=== PATIENT | female | born 2000 | race Caucasian/White ===

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

== ENCOUNTER 2019-11-09 09:08 | Emergency (ER) | payer OTHER, SELFPAY ==
[2019-11-09 09:17] VITALS: BP 153/90; PULSE 110; RESP 22; TEMP 38.2; O2SAT 96; BMI 41.3
--- NOTE | 2019-11-09 09:46 | HMH.EDUTC ---
[facility] [place] Impression: Bronchitis Sinusitis Qualifiers: Sinusitis location: unspecified location Chronicity: unspecified Qualified Code(s): J32.9 - Chronic sinusitis, unspecified Disposition: Home, Self-Care Condition on Discharge: Good Instructions: Sinusitis, Sinus Headache, DI for Sinusitis Additional Instructions: ? Start antibiotic today. Be sure to complete entire prescription even if feeling better ? Monitor temp. Tylenol every 4 hours as needed and / or ibuprofen every 6 hours as needed ( As long as your primary care physician has told you that it ok to take both. For fever/aches/pains ER if no less than 101 despite Tylenol or Motrin ? Humidifier/vaporizer or hot steamy shower ? Inhaler every 4-6 hours as needed like we discussed. If unsure how to use it, ask pharmacist to demonstrate how. Should help open airways and improve cough, wheezing, and shortness of breath ? Mucinex during the day for your cough and cough suppressant only at night. Be sure to drink lots of water. Insurance may not cover a prescriptions for mucinex. Might be cheaper to get 400mg tablets and take 2 tablet in the morning, mid-day and evening with lots of water. *Tessalon Perles will not cause drowsiness but use at bedtime to help stop cough so that you may get some rest. *Continue steroid Helps with inflammation therefore, cough and wheezing. Follow directions on the package. Reviewed side effects. Patient reports taking them before. Follow up IMMEDIATELY for new or worsening of symptoms OR no noticeable improvement over the next 48-72 hours. 911 immediately for any life threatening symptoms such as chest pain or difficulty breathing Prescriptions: Albuterol Sulfate [Albuterol HFA Inhaler] 1 - 2 puffs IH Q4-6H PRN #1 inh PRN Reason: Shortness Of Breath Or Wheezing Transmission Status: Pending to [facility] Amoxicillin/Potassium Clav [Augmentin 875-125 Tablet] 1 tab PO Q12H 7 Days #14 tab Transmission Status: Pending to [facility] Fluticasone Propionate [Flonase 50mcg nasal spray 16gm] 2 spr NS DAILY #1 bottle Transmission Status: Pending to [facility] Benzonatate [Tessalon Perle 100mg Cap*] 100 mg PO BID PRN #10 cap PRN Reason: Cough Transmission Status: Pending to [facility] [address] Referrals: Blank Hoffman APRN [Primary Care Provider] - As needed Time of Disposition: 09:57 Medical Decision Making - Chris Inquiry Pt receiving controlled substance: No Chris was queried for this patient: No Vital Signs: 11/09/19 09:17 Temperature 100.8 F H Temperature Source Oral Pulse Rate [Radial] 110 H Respiratory Rate 22 Blood Pressure [Right Arm] 153/90 H Blood Pressure Mean [Right Arm] 111 Blood Pressure Source [Right Arm] Automatic Cuff Blood Pressure Position [Right Arm] Sitting 02 Sat by Pulse Oximetry 96 Oxygen Delivery Method Room Air - Lab Data Lab results reviewed: Yes: I reviewed the patient's lab results. Orders (Tests/Meds): ED MEDICATIONS Discontinued Medications Generic Name Dose Route Start Last Admin Trade Name Freq PRN Reason Stop Dose Admin Acetaminophen 650 mg 11/09/19 09:39 11/09/19 09:41 Acetaminophen 325mg Tab PO 11/09/19 09:40 650 mg ONCE ONE Administration Ibuprofen 800 mg 11/09/19 09:39 11/09/19 09:40 Motrin 400mg Tablet PO 11/09/19 09:40 800 mg ONCE ONE Administration [facility] [place] - General Stated complaint: SOA COUGH CAN'T SLEEP Time Seen by Provider: 11/09/19 09:46 Mode of Arrival: Ambulatory Source of Information: Patient Limitations: No Limitations Description of Symptoms (Recalled from Triage Doc. by RN): possible upper respiratory infection HEENT Symptoms (Recalled from RN notes): Yes Resp Symptoms (Recalled from RN notes): Yes Skin Symptoms (Recalled from RN notes): No MS Symptoms (Recalled from RN notes): No Functional Status (Recalled from RN notes): wnl - History of Present Il
[2019-11-09 09:54] LABS: UTC Influenza A Antigen Negative (Negative); UTC Influenza B Antigen Negative (Negative)
[2019-11-09 10:07] VITALS: BP 153/90; PULSE 110; RESP 22; TEMP 38.2; O2SAT 96
== END 2019-11-09 10:08 | disposition home or self-care (01) ==
PROVIDERS: Emergency Provider Nurse Practitioner; PCP Nurse Practitioner Family
DX: J20.9 Acute bronchitis, unspecified (principal); J32.9 Chronic sinusitis, unspecified; F41.8 Other specified anxiety disorders; F17.210 Nicotine dependence, cigarettes, uncomplicated; Z79.899 Other long term (current) drug therapy
CPT/HCPCS: 87804; 99201

== ENCOUNTER 2021-04-02 12:54 | Emergency (ER) | payer OTHER, SELFPAY ==
[2021-04-02] VITALS (9 sets, daily range): BP systolic 111–138; BP diastolic 50–71; PULSE 65–89; RESP 12–18; TEMP 36.7–36.8; O2SAT 96–100; BMI 50.4
--- NOTE | 2021-04-02 13:17 | XR_ITS ---
PROCEDURE: XR KNEE LT 3V CLINICAL INDICATION: hit on toilet and fell Pain COMPARISON: CR [id number] XR knee RT 3V from 12/02/2017 FINDINGS: There is lateral dislocation of the patella. Patella lies lateral to the lateral femoral condyle. No obvious fracture. The joint spaces are well-preserved. No significant degenerative/arthritic changes. No erosive changes evident. Other findings:None. IMPRESSION: Lateral patellar dislocation Dictated by: Darius Hayes MD 04/02/2021 13:41 Darius Hayes MD in [place] 04/02/2021 13:41
--- NOTE | 2021-04-02 13:18 | HMH.EDGENADL ---
ED Disposition Clinical Impression: Patellar dislocation Qualifiers: Encounter type: initial encounter Laterality: left Qualified Code(s): S83.005A - Unspecified dislocation of left patella, initial encounter Disposition: Home, Self-Care Condition on Discharge: Good Instructions: DI for Patellar Dislocation Additional Instructions: Remain nonweightbearing on the left lower extremity until follow-up with orthopedic surgery. Return to the emergency department for any acute new or worsening concerns. Prescriptions: Hydrocodone/Acetaminophen [Hydrocodone-Acetamin 5-325 mg] 1 each PO Q6 PRN #10 tab PRN Reason: pain Transmission Status: Received by [facility] #[id number] Referrals: Alanna Espinal MD [Physician] - 3 days - Critical Care Critical Care Time: No Attestation: On 04/02/21, the high probability of a clinically significant, sudden or life threatening deterioration of the following system(s) required my full and direct attention, intervention and personal management. The time I documented below is in addition to time spent performing reported procedures but includes the following listed in this critical care notation. Medical Decision Making - Medical Records Medical records reviewed: Yes: I reviewed the patient's medical records. - Chris Inquiry Pt receiving controlled substance: Yes Chris was queried for this patient: No Risks and benefits of using a controlled substance: were discussed with pt by me Vital Signs: 04/02/21 12:56 04/02/21 14:30 04/02/21 14:32 Temperature 98.2 F Temperature Source Oral Pulse Rate Pulse Rate [Left Radial] 89 Respiratory Rate 18 12 18 Blood Pressure 111/70 127/61 Blood Pressure [Right Arm] 115/50 L Blood Pressure Mean 83 83 Blood Pressure Mean [Right Arm] 71 Blood Pressure Source [Right Arm] Automatic Cuff Blood Pressure Position [Right Arm] Sitting 02 Sat by Pulse Oximetry 100 96 100 Oxygen Delivery Method Room Air Oxygen Flow Rate (LPM) 04/02/21 14:37 04/02/21 14:40 04/02/21 14:45 Temperature Temperature Source Pulse Rate Pulse Rate [Left Radial] 69 82 65 Respiratory Rate 16 15 17 Blood Pressure 138/64 125/68 Blood Pressure [Right Arm] 127/61 138/64 125/68 Blood Pressure Mean 90 81 Blood Pressure Mean [Right Arm] 83 88 87 Blood Pressure Source [Right Arm] Automatic Cuff Automatic Cuff Blood Pressure Position [Right Arm] Sitting Sitting 02 Sat by Pulse Oximetry 100 100 100 Oxygen Delivery Method Room Air Nasal Cannula Room Air Oxygen Flow Rate (LPM) 2 04/02/21 14:47 04/02/21 14:50 Temperature Temperature Source Pulse Rate 85 Pulse Rate [Left Radial] Respiratory Rate 16 18 Blood Pressure 117/58 L 119/62 Blood Pressure [Right Arm] Blood Pressure Mean 91 81 Blood Pressure Mean [Right Arm] Blood Pressure Source [Right Arm] Blood Pressure Position [Right Arm] 02 Sat by Pulse Oximetry 96 96 Oxygen Delivery Method Oxygen Flow Rate (LPM) Orders (Tests/Meds): ED MEDICATIONS Discontinued Medications Generic Name Dose Route Start Last Admin Trade Name Freq PRN Reason Stop Dose Admin Hydrocodone Bitart/Acetaminophen 1 tab 04/02/21 13:17 04/02/21 13:37 Hydrocodone/Apap 5/325 Mg Tablet PO 04/02/21 13:18 1 tab ONCE ONE Administration Etomidate 10 mg 04/02/21 14:24 04/02/21 14:57 Etomidate 40mg/20ml Vial IV 04/02/21 14:25 10 mg ONCE STA Administration ORDERS Category Date Time Status Knee XR left 2 views [XR knee LT 2V] Stat Exams 04/02/21 14:39 Taken - Radiology Data #1 Image(s): Knee Lateral patella dislocation left knee #2 Image(s): Knee Image Reviewed: Yes I reviewed the patient's radiology image Left patella reduction Medical Decision Narrative: Patient with left patella dislocation, easily reduced under procedural sedation. Patient tolerated the procedure well. Knee immobilizer placed and patient was advised to be nonweig
--- NOTE | 2021-04-02 14:39 | XR_ITS ---
PROCEDURE: XR KNEE LT 2V CLINICAL INDICATION: post reduction Follow-up patellar dislocation COMPARISON: CR [id number] XR knee RT 3V from 12/02/2017 CR XR KNEE LT 3V from 04/02/2021 FINDINGS: There has been interval reduction the patellar dislocation which is now in good position. There is a faint density along the lower pole of the patella which could represent an avulsion fracture not readily apparent on the previous exam. The joint spaces are well-preserved. No significant degenerative/arthritic changes. No erosive changes evident. Other findings:None. IMPRESSION: Interval reduction of patellar dislocation with possible avulsion fracture along the lower pole of the Dictated by: Darius Hayes MD 04/02/2021 15:18 Darius Hayes MD in [place] 04/02/2021 15:18
== END 2021-04-02 15:30 | disposition home or self-care (01) ==
PROVIDERS: Emergency Provider Emergency Medicine
DX: S83.005A Unspecified dislocation of left patella, initial encounter (principal); W18.00XA Striking against unspecified object with subsequent fall, initial encounter; Y92.012 Bathroom of single-family (private) house as the place of occurrence of the external cause; E66.01 Morbid (severe) obesity due to excess calories; Z68.43 Body mass index [BMI] 50.0-59.9, adult; I10 Essential (primary) hypertension; E78.5 Hyperlipidemia, unspecified; F41.8 Other specified anxiety disorders; F17.210 Nicotine dependence, cigarettes, uncomplicated
CPT/HCPCS: 23650; 73560; 73562; 96374; 99284

== ENCOUNTER 2021-04-06 09:20 | Outpatient (RCR) | payer OTHER, SELFPAY | END 2021-04-06 10:54 | disposition home or self-care (01) | LOC: PT 09:20 | PROVIDERS: Visit Provider Orthopaedic Surgery | DX: S83.005A Unspecified dislocation of left patella, initial encounter (principal) | CPT/HCPCS: 97760 ==

== ENCOUNTER 2021-04-24 08:58 | Outpatient (RCR) | payer OTHER, SELFPAY ==
--- NOTE | 2021-04-24 09:38 | HMH.PTOPEV ---
PT Outpatient Evaluation Rehab PT Outpatient Evaluation Start: 04/24/21 09:27 Freq: Status: Active Protocol: Document 04/24/21 09:27 DAPHNEY (Rec: 04/24/21 09:38 DAPHNEY [id number]) Electronically Signed By Filemon Alvares, PT 04/24/21 09:27 Outpatient Therapy Subjective History Subjective History Pt reports injury to L knee on 04/02/21 d/t slip and fall at home. Pt sustained L patellar dislocation, and has lingerinn L knee pain, stiffness, swelling, and episodes of ' catching and clicking'. Pt reports knee cap area continues to improve, but still possesses significant stiffness and pain, davie. w/ stairs. Chief Complaint Pain,Stiff,Clicks,Swelling, Catches/Locks,Gives out/ Unstable,Weakness Symptom Type Ache,Sharp,Dull Symptoms Relieved By Rest/Positioning,Heat,Ice Symptoms Aggravated By Standing,Physical Activity, Walking Prior Functional Limitations Standing,Squatting,Walking, Stairs Current Functional Limitations Standing,Squatting,Walking, Stairs Symptom Description Constant but Variable Level of pain today (0-10) 1 Pain scale - at its best (0-10) 1 Pain scale - at its worst (0-10) 5 Hip/Knee Eval Gait Observation General Gait Pattern Observation Antalgic Gait Palpation Tenderness left Knee Palpation Finding Tenderness Knee Palpation Overall Comment 3/4 medial jt line, 3/4 medial popiteal space MMT Hip Flexion Strength Grade 4 Good Hip Abduction Strength Grade 4- Good- Hip Adduction Strength Grade 4- Good- Hip Extension Strength Grade 4- Good- Hip External Rotation Strength Grade 4- Good- Hip Internal Rotation Strength Grade 4- Good- Knee Extension Strength Grade 5 Normal Knee Flexion Strength Grade 4 Good ROM Knee Flexion Active Range of Motion ( 3-0-95 degrees) Knee ROM Limitations Soft Tissue Tightness,Pain Effusion joint effusion knee exam standard left Mid - Patellar Circumerential Measure ( 47 cm) Special Tests Knee Valgus Stress Test Negative Left Knee Varus Stress Test Negative Left Knee Paty Test Positive Left Patella Apprehension Test Negative Left Patellar Grind Test Negative Left Patellar Compression Test
== END 2021-04-24 08:59 | disposition home or self-care (01) ==
LOC: PT 08:58
PROVIDERS: Visit Provider Orthopaedic Surgery
DX: S83.005D Unspecified dislocation of left patella, subsequent encounter (principal)
CPT/HCPCS: 97163